=== PATIENT | male | born 1990 | race African-American/Black ===

== ENCOUNTER 2020-11-22 16:45 | Inpatient (IN) | payer OTHER ==
[~2020-11-22] VITALS: Ht 170.2 cm; Wt 123.0 kg
[2020-11-22] MEDS ORDERED: IV NORMAL SALINE 1,000ML 1,000 ML IV ONE (18:00)
--- NOTE | 2020-11-22 18:26 | RAD ---
EXAM: ABDOMEN 2 VIEWS. HISTORY: Abdominal pain, constipation. COMPARISON: None. FINDINGS: Supine and upright views of the abdomen are obtained. There is no pneumoperitoneum. There are no distended small bowel loops or significant air fluid level s. There is gas distally. IMPRESSION: 1. No evidence of obstruction or clear constipation by radiographs. Electronically signed by: Dorene Price MD (11/22/2020 6:23 PM) [facility]
[2020-11-22 18:49] LABS: BASO % 0 % (0-3); EOS % 0 % (0-3); HEMOGLOBIN 14.7 g/dL (13.0-17.5); LYMPH # 1.6 x10^3/uL (1.0-4.8); LYMPH % 15 % (24-48); MEAN CORPUSCULAR HEMOGLOBIN 26 pg (25-35); MEAN CORPUSCULAR HGB CONC 32 g/dL (31-37); MEAN CORPUSCULAR VOLUME 82 fL (79-100); MONO # 0.7 x10^3/uL (0.0-1.1); MONO % 7 % (0-9); NEUT # 8.3 x10^3uL (1.8-7.7); NEUT % 78 % (31-73); PLATELET COUNT 189 x10^3/uL (140-400); RED BLOOD COUNT 5.58 x10^6/uL (4.30-5.70); RED CELL DISTRIBUTION WIDTH 16.2 % (11.5-14.5); WHITE BLOOD COUNT 10.7 x10^3/uL (4.0-11.0)
[2020-11-22 19:02] LABS: ALBUMIN 4.4 g/dL (3.4-5.0); CALCIUM 8.8 mg/dL (8.5-10.1); CREATININE 2.1 mg/dL (0.7-1.3); GFR 44.8; POTASSIUM 3.6 mmol/L (3.5-5.1); TOTAL BILIRUBIN 0.5 mg/dL (0.2-1.0); TOTAL PROTEIN 8.8 g/dL (6.4-8.2)
[2020-11-22] MEDS ORDERED: ONDANSETRON PF 4 MG/2 ML VIAL. IVP ONE (19:15)
--- NOTE | 2020-11-22 19:15 | PHYS DOC ---
Past History Past Medical History: Constipation, Diabetes, Hypertension (BRENNON DAVID APRN) Past Surgical History: No Surgical History (BRENNON DAVID APRN) Alcohol Use: Occasionally (BRENNON DAVID APRN) Adult General Chief Complaint Chief Complaint: CONTISPATION HPI HPI Patient is a 30-year-old male presents to the emergency department complaining of constipation for weeks. Patient states he performed a fleets type enema from the pharmacy on Wednesday, started taking 1 dose of MiraLAX which he took this past Wednesday, Wednesday, and then again on . Patient states he had a very large bowel movement on Wednesday morning, and then later that day he had a large watery stool. Patient states he still feels as if he is full of stool and is unable to have a bowel movement since this past Wednesday. Patient denies abdominal pain. States he has intermittent nausea. Denies chest pain, shortness of breath, visual disturbances, rashes to the skin, denies increased thirst or increased urination. Patient states his past medical history is hypertension however was told to stop taking his blood pressure medicines several days ago and his blood pressure was 97/50. Patient states he has not taken any prescription medications since then. Patient denies a surgical history. Patient denies any allergies to medications. Patient denies any other physical complaints or physical concerns. (BRENNON DAVID APRN) Review of Systems Review of Systems 14 body systems of review of systems have been reviewed. See HPI for pertinent positives and negative responses, otherwise all other systems are negative, nonpertinent or noncontributory. (BRENNON DAVID APRN) Current Medications Current Medications Current Medications Medications (Trade) Dose Ordered Sig/Gabriela Start Time Stop Time Status Last Admin Dose Admin Ondansetron HCl (Zofran) 4 mg 1X ONCE 11/22/20 19:15 11/22/20 19:16 UNV 11/22/20 19:14 4 MG Sodium Chloride 1,000 ml @ 1,000 mls/hr 1X ONCE 11/22/20 18:00 11/22/20 18:59 DC 11/22/20 18:20 1,000 MLS/HR (BRENNON DAVID APRN) Allergies Allergies Allergies Coded Allergies Type Severity Reaction Last Updated Verified No Known Drug Allergies 11/22/20 No (BRENNON DAVID APRN) Physical Exam Physical Exam Constitutional: Well developed, well nourished, no acute distress, non-toxic appearance. 30-year-old male in mild respiratory distress. HENT: Normocephalic, atraumatic, bilateral external ears normal, oropharynx moist, no oral exudates, nose normal. Eyes: PERRLA, EOMI, conjunctiva normal, no discharge. Neck: Normal range of motion, no tenderness, supple, no stridor. Cardiovascular:Heart rate regular rhythm, no murmur, heart sounds S1-S2 to auscultation. Lungs & Thorax: Bilateral breath sounds clear to auscultation, no adventitious lung sounds appreciated. Abdomen: Bowel sounds normal, soft, no tenderness, no masses, no pulsatile masses. Skin: Warm, dry, no erythema, no rash. Back: No tenderness, no CVA tenderness. Extremities: No tenderness, no cyanosis, no clubbing, ROM intact, no edema. Neurologic: Alert and oriented X 3, normal motor function, normal sensory function, no focal deficits noted. Psychologic: Affect normal, judgement normal, mood normal. (BRENNON DAVID APRN) Current Patient Data Vital Signs Vital Signs Date Time Temp Pulse Resp B/P (MAP) Pulse Ox O2 Delivery O2 Flow Rate FiO2 11/22/20 18:37 114 22 184/109 (134) 99 11/22/20 18:21 Room Air 11/22/20 16:58 98.6 Lab Results Laboratory Tests Test 11/22/20 18:15 White Blood Count 10.7 x10^3/uL (4.0-11.0) Red Blood Count 5.58 x10^6/uL (4.30-5.70) Hemoglobin 14.7 g/dL (13.0-17.5) Hematocrit 46.0 % (39.0-53.0) Mean Corpuscular Volume 82 fL (79-100) Mean Corpuscular Hemoglobin 26 pg (25-35) Mean Corpuscular Hemoglobin Concent 32 g/dL (31-37) Red Cell Distribution Width 16.2 % (11.5-14.5) H Platelet Count 189 x10^3/uL (140-400) Neutrophils (%) (Auto) 78 % (31-73) H Lymphocytes (%) (Auto) 15 % (24-48) L Monocytes (%) (Auto) 7 % (0-9) Eosinophils (%) (Auto) 0 % (0-3) Basophils (%) (Auto) 0 % (0-3) Neutrophils # (Auto) 8.3 x10^3uL (1.8-7.7) H Lymphocytes # (Auto) 1.6 x10^3/uL (1.0-4.8) Monocytes # (Auto) 0.7 x10^3/uL (0.0-1.1) Eosinophils # (Auto) 0.0 x10^3/uL (0.0-0.7) Basophils # (Auto) 0.0 x10^3/uL (0.0-0.2) Sodium Level 135 mmol/L (136-145) L Potassium Level 3.6 mmol/L (3.5-5.1) Chloride Level 100 mmol/L (98-107) Carbon Dioxide Level 8 mmol/L (21-32) *L Anion Gap 27 (6-14) H Blood Urea Nitrogen 18 mg/dL (8-26) Creatinine 2.1 mg/dL (0.7-1.3) H Estimated GFR (Cockcroft-Gault) 44.8 BUN/Creatinine Ratio 9 (6-20) Glucose Level 505 mg/dL (70-99) *H Calcium Level 8.8 mg/dL (8.5-10.1) Total Bilirubin 0.5 mg/dL (0.2-1.0) Aspartate Amino Transferase (AST) 8 U/L (15-37) L Alanine Aminotransferase (ALT) 28 U/L (16-63) Alkaline Phosphatase 100 U/L (46-116) Total Protein 8.8 g/dL (6.4-8.2) H Albumin 4.4 g/dL (3.4-5.0) Albumin/Globulin Ratio 1.0 (1.0-1.7) (BRENNON DAVID APRN) EKG EKG [] (BRENNON DAVID APRN) Radiology/Procedures Radiology/Procedures [] (BRENNON DAVID APRN) Heart Score C/O Chest Pain: No Risk Factors: Risk Factors: DM, Current or recent (<one month) smoker, HTN, HLP, family history of CAD, obesity. Risk Scores: Risk Factors: DM, Current or recent (<one month) smoker, HTN, HLP, family history of CAD, obesity. (BRENNON DAVID APRN) Course & Med Decision Making Course & Med Decision Making Pertinent Labs and Imaging studies reviewed. (See chart for details) 30-year-old male, vital signs reviewed, presents to the emergency department with complaints of constipation problems. Physical examination unremarkable for constipation however patient in a mild respiratory distress, no adventitious lung sounds appreciated. Patient states that he is breathing this way because he is so constipated. Will order KUB and upright imaging, CBC, BMP, start 1 L normal saline, offered ondansetron for nausea, patient refused at this time stating he is not nauseated. Patient is hypertensive, however has stopped taking his blood pressure medications at home as directed by a healthcare provider this past week. Discussed with patient if he is discharged home to start back on his blood pressure medication regimen. Blood pressure at bedside during physical exam was 180/103. Patient continued to deny any headaches, visual disturbances, or any other neurological problems. Patient complained of nausea and vomited x1, 4 mg of Zofran given. Lab called critical results of CO2 8, serum blood glucose 505. Will order VBG and acetone level. Discussed this with patient, patient states that he forgot to tell me he is a new diabetic anxious started taking Metformin within the past month. Patient's acetone level small positive, VBG positive for DKA with pH 7.108, HCO3 5.2, total CO2 6, patient's lactic acid 1.5. Ordered one half normal saline with 20 of K to run at 75 cc an hour, 12 units IV insulin bolus, followed by 12 unit/h IV insulin drip. Also ordered patient's losartan 100 mg p.o. Called and discussed patient case with inpatient management Dr. Fair who has agreed to accept patient for full admission to the ICU with a diagnosis of diabetic ketoacidosis with the information he was given by me. Dr. Fair requested patient be started on glucose stabilization orders. Glucose stabilization orders initiated, Dr. Fair has assumed patient care at this time. Patient awaiting ICU bed from the emergency department. (BRENNON DAVID APRN) Course & Med Decision Making I assumed care as attending physician shelter through care of patient while in ER. I noticed vital sign instability and probed further diagnostic testing leading to finding of patient being in DKA. I oversaw further care and admission of patient for continued inpatient medical management. I agree to note, plan of care and dispo as stated Electronically signed, Charisse Barksdale (CHARISSE BARKSDALE DO) Marcos Disclaimer Dragon Disclaimer This electronic medical record was generated, in whole or in part, using a voice recognition dictation system. (BRENNON DAVID APRN) Departure Departure: Impression: Primary Impression: DKA (diabetic ketoacidoses) Disposition: ADMITTED INPATIENT Admitting Physician: Carroll Fair (Admit to the [place] ICU for diagnosis of DKA) (BRENNON DAVID APRN) Condition: STABLE Referrals: GHASSAN LAWSON DO (PCP) Problem Qualifiers Primary Impression: DKA (diabetic ketoacidoses) Diabetes mellitus type: type 2 Diabetes mellitus complication detail: without coma Qualified Codes: E11.10 - Type 2 diabetes mellitus with ketoacidosis without coma BRENNON DAVID APRN Nov 22, 2020 19:15 CHARISSE BARKSDALE DO November 26, 2020 14:02
[2020-11-22] MEDS ORDERED: POTASSIUM CL 20MEQ-0.45% NACL 1,000 ML IV ONE (20:00)
[2020-11-22] MEDS ORDERED: INSULIN REGULAR 100 UNIT/ML 3ML VIAL. IV ONE (20:00)
[2020-11-22] MEDS ORDERED: INSULIN REGULAR VIAL 100 UNIT in IV NORMAL SALINE 100ML 100 ML IV ONE (20:00)
[2020-11-22] MEDS ORDERED: ATOR40TA59 PO (20:30)
[2020-11-22] MEDS ORDERED: AMLO-187 PO (20:30)
[2020-11-22] MEDS ORDERED: CARV25TA PO (20:31)
[2020-11-22] MEDS ORDERED: METF500T16 PO (20:32)
[2020-11-22] MEDS ORDERED: LOSA100T14 PO (20:32)
[2020-11-22 20:36] LABS: BACTERIA,URINE 0 /HPF (0-FEW); BILIRUBIN,URINE NEG (NEG); CLARITY,URINE CLEAR; COLOR,URINE YELLOW; GLUCOSE,URINE 500 mg/dL (NEG); NITRITE,URINE NEG (NEG); SQUAMOUS EPITHELIAL CELL,UR OCC /LPF; UROBILINOGEN,URINE 0.2 mg/dL (0.2 mg/dL); WBC,URINE 0 /HPF (0-4)
[2020-11-22] MEDS: INSULIN REGULAR VIAL 100 UNIT in IV NORMAL SALINE 100ML 100 ML IV PRN (20:38)
--- NOTE | 2020-11-22 21:54 | NUR ---
The patient, BRENNON MCMAHON, 30 y/o, M admitted by , was given written information regarding hospital policies, unit procedures and contact persons. Valuables were checked and logged. Will continue to monitor.
[2020-11-22] MEDS ORDERED: POTASSIUM CL 20MEQ-0.45% NACL 1,000 ML IV SCH (22:45)
--- NOTE | 2020-11-22 22:46 | NUR ---
Notified MD of elevated bp and MD wants to start home medications. MD wants labs in the am only.
[2020-11-22 22:50] VITALS: BP 151/76
[2020-11-22 23:00] VITALS: BP 213/107
[2020-11-22] MEDS: amLODIPine BESYLATE 10 MG TABLET PO SCH (23:15)
[2020-11-22] MEDS: LOSARTAN 50 MG TABLET. PO SCH (23:15)
[2020-11-22] MEDS: CARVEDILOL 12.5 MG TABLET PO SCH (23:15)
[2020-11-23] VITALS (28 sets, daily range): BP systolic 47–160; BP diastolic 18–105
[2020-11-23] MEDS: ONDANSETRON PF 4 MG/2 ML VIAL. IVP PRN ×2 (00:03→08:20)
[2020-11-23] MEDS: INSULIN REGULAR VIAL 100 UNIT in IV NORMAL SALINE 100ML 100 ML IV PRN (04:59)
[2020-11-23 05:57] LABS: BASO % 1 % (0-3); EOS % 0 % (0-3); HEMATOCRIT 42.9 % (39.0-53.0); HEMOGLOBIN 13.6 g/dL (13.0-17.5); LYMPH # 1.7 x10^3/uL (1.0-4.8); LYMPH % 19 % (24-48); MEAN CORPUSCULAR HEMOGLOBIN 26 pg (25-35); MEAN CORPUSCULAR HGB CONC 32 g/dL (31-37); MEAN CORPUSCULAR VOLUME 83 fL (79-100); MONO # 1.1 x10^3/uL (0.0-1.1); MONO % 12 % (0-9); NEUT # 6.4 x10^3uL (1.8-7.7); NEUT % 69 % (31-73); PLATELET COUNT 152 x10^3/uL (140-400); RED BLOOD COUNT 5.19 x10^6/uL (4.30-5.70); RED CELL DISTRIBUTION WIDTH 15.6 % (11.5-14.5); WHITE BLOOD COUNT 9.3 x10^3/uL (4.0-11.0)
[2020-11-23 06:06] LABS: ALBUMIN 3.8 g/dL (3.4-5.0); ALBUMIN/GLOBULIN RATIO 1.1 (1.0-1.7); CALCIUM 8.3 mg/dL (8.5-10.1); CREATININE 2.8 mg/dL (0.7-1.3); GFR 32.1; POTASSIUM 3.6 mmol/L (3.5-5.1); TOTAL BILIRUBIN 0.4 mg/dL (0.2-1.0); TOTAL PROTEIN 7.4 g/dL (6.4-8.2)
[2020-11-23] MEDS ORDERED: SODIUM BICARB ADULT 8.4% 50 MEQ/50 ML DISP.SYRIN. IV ONE (06:30)
[2020-11-23] MEDS ORDERED: metFORMIN 500 MG TABLET PO SCH (08:00)
[2020-11-23] MEDS: CARVEDILOL 12.5 MG TABLET PO SCH ×2 (08:19→10:02)
[2020-11-23] MEDS: amLODIPine BESYLATE 10 MG TABLET PO SCH (09:00)
[2020-11-23] MEDS: LOSARTAN 50 MG TABLET. PO SCH (09:00)
[2020-11-23] MEDS: ATORVASTATIN CALCIUM 20 MG TABLET PO SCH (09:00)
[2020-11-23] MEDS ORDERED: LOSARTAN 50 MG TABLET. PO SCH (09:00)
[2020-11-23] MEDS ORDERED: DEXTROSE 50% 25 GM / 50ML DISP.SYRIN. IV PRN (09:30)
--- NOTE | 2020-11-23 10:00 | NUR ---
Notified MD of hypotension, 40s/10s. Blood pressure checked in 4 locations all with readings as low as 60s/30s. Dr. Fair paged and received orders for IV Fluid Bolus. Will give IV hydration and continue to reassess. All home BP medications stopped at this time. Will continue to critically monitor.
--- NOTE | 2020-11-23 10:07 | HP ---
ADMIT DATE: 11/23/2020 ATTENDING PHYSICIAN: Dr. Fair. CHIEF COMPLAINT: High blood sugar. HISTORY OF PRESENT ILLNESS: The patient is a pleasant 30-year-old gentleman who works at the [employer]. He was recently diagnosed a month ago with diabetes. He has essential hypertension. He is obese. He was started on metformin, but unfortunately sugars are fairly out of control. In the ED, he was found to be in ketoacidosis. His admission blood sugar was over 600, bicarbonate level was 8 and an anion gap of 31. Hemoglobin was maintained. He was given fluids and insulin, admitted to the ICU with a GlucoStabilizer protocol with uncontrolled diabetes and diabetic ketoacidosis. PAST MEDICAL HISTORY: Significant for the new onset diabetes type 2; however, this may be a component of type 1. There is no family history. He also has essential hypertension, hyperlipidemia. CURRENT MEDICATIONS: Include metformin twice a day along with losartan, amlodipine and Lipitor. ALLERGIES: He has no known drug allergies. SOCIAL HISTORY: He is nonsmoker, nondrinker. He is retired . He served for 8 years. He currently works in the Department of [employer]. His is also in the . FAMILY HISTORY: Both parents are alive in their late 40s. No history of diabetes. REVIEW OF SYSTEMS: Significant for constipation, high blood pressure. He has had some increased respiratory rate due to Kussmaul breathing. He denied any chest pain, COVID exposure, shortness of breath, hematemesis or seizures. All other systems reviewed and found to be negative. PHYSICAL EXAMINATION: GENERAL: When I saw him, this is a pleasant young male. VITAL SIGNS: Showed a blood pressure 112/40, pulse was 89 and regular, temperature 97.2 degrees, oxygen saturation 100% on room air. HEENT: Head is without trauma. Pupils are reactive. Sclerae nonicteric. Oropharynx is clear. NECK: Supple, no bruits. LUNGS: Otherwise clear. CARDIOVASCULAR: Showed regular heart sounds, no gallops. ABDOMEN: Soft, obese, protuberant. No organomegaly. Normoactive bowel sounds. EXTREMITIES: Show no cyanosis or edema. NEUROLOGIC: Focally intact. Speech is fluent. SKIN: Warm and dry. LABORATORY DATA: The hemoglobin was 14.7 g/dL with a white count of 10,700. Electrolytes showed a significant anion gap. Repeated this morning, his bicarbonate was still 8, potassium 3.6 mEq. The anion gap is still 25. Sugars are down in the mid 200s and is improving with the glucose stabilizer protocol. Transaminases are normal. ASSESSMENT: This 30-year-old gentleman has; 1. Diabetic ketoacidosis. 2. Profound hyperglycemia. 3. Essential hypertension. 4. Hyperlipidemia. PLAN: 1. Admit to the ICU. 2. Glucose stabilizer protocol. 3. Serial chemistry. 4. Sodium bicarbonate. 5. Continue home medications as ordered. ARMANDO DR: JEFERSON/kaiser TID: [id number]
[2020-11-23] MEDS ORDERED: IV NORMAL SALINE 1,000ML 1,000 ML IV ONE ×3 (10:45→14:45)
[2020-11-23] MEDS: INSULIN LISPRO 300 UNITS/3 ML VIAL. SQ SCH ×3 (11:46→19:00)
--- NOTE | 2020-11-23 14:29 | NUR ---
Paged Dr. Fair regarding patient's continued hypotension even after fluid boluses. Received orders for IV NS Bolus x 1. Will continue to critically monitor.
[2020-11-23] MEDS: IV NORMAL SALINE 1,000ML 1,000 ML IV SCH ×2 (14:50→23:34)
[2020-11-24] MEDS: INSULIN LISPRO 300 UNITS/3 ML VIAL. SQ SCH ×6 (00:05→20:09)
[2020-11-24 03:29] VITALS: BP 162/81
--- NOTE | 2020-11-24 04:45 | NUR ---
Pt transferred from ICU to M/S just before midnight 11/23. Blood glucose as noted in chart, insulin given per orders.
[2020-11-24] MEDS ORDERED: MAG HYDROX/AL HYDROX/SIMETH 30 ML ORAL.SUSP PO PRN (05:15)
[2020-11-24 05:20] VITALS: BP 157/93
[2020-11-24] MEDS: CARVEDILOL 12.5 MG TABLET PO SCH ×2 (08:02→16:21)
[2020-11-24] MEDS: LOSARTAN 50 MG TABLET. PO SCH (08:04)
[2020-11-24] MEDS: amLODIPine BESYLATE 10 MG TABLET PO SCH (08:04)
[2020-11-24] MEDS: ATORVASTATIN CALCIUM 20 MG TABLET PO SCH (08:04)
[2020-11-24 08:47] LABS: CALCIUM 7.6 mg/dL (8.5-10.1); CREATININE 1.9 mg/dL (0.7-1.3); GFR 50.3
[2020-11-24] MEDS ORDERED: SODIUM BICARB ADULT 8.4% 50 MEQ/50 ML DISP.SYRIN. IV ONE (09:15)
[2020-11-24] MEDS: POTASSIUM CHLORIDE 20 MEQ TABLET.ER. PO SCH ×2 (09:29→20:06)
[2020-11-24] MEDS: IV NORMAL SALINE 1,000ML 1,000 ML IV SCH (09:38)
--- NOTE | 2020-11-24 09:51 | NUR ---
nursing note after rounding with dr hoffmann, plan to keep pt overnight, pt fills his scripts at [facility], which is closed today, pt needs to start on insulin. plan per dr hoffmann is to keep pt overnight and dc tomorrow with insulin script and diabetic education. bmp stat labs ordered per dr hoffmann, pt bicarb came back at 11. order from dr hoffmann for 1 amp of bicarb push iv and oral potassium 20 meq bid. pt currently resting in the bed. eleonora pond.
--- NOTE | 2020-11-24 10:04 | PN ---
DATE: 11/24/2020 ATTENDING PHYSICIAN: Dr. Fair. SUBJECTIVE: Feeling better. No new complaints. His appetite is coming back. He denies any nausea or shortness of breath. OBJECTIVE FINDINGS: VITAL SIGNS: Blood pressure today is 157/93, pulse 89 and regular, oxygen saturation 99% on room air. He is afebrile. HEENT: Head is without trauma. Pupils are reactive. Sclerae nonicteric. Oropharynx clear. NECK: Supple, no bruits. LUNGS: Clear. CARDIOVASCULAR: Regular heart tones. ABDOMEN: Soft. No guarding or rebound tenderness. EXTREMITIES: Show no cyanosis. NEUROLOGIC: Focally intact. Speech is fluent. SKIN: Warm and dry. LABORATORY DATA: Potassium is 3.0 mEq per liter, bicarbonate level the CO2 is up to 11, but the anion gap still elevated at 21, creatinine down to 1.9 mg/dL. ASSESSMENT: 1. A 30-year-old gentleman with uncontrolled diabetes. 2. Diabetic ketoacidosis. 3. Obesity. 4. Hypertension. 5. Hypokalemia, asymptomatic. 6. Persistent acidosis. 7. Chronic kidney disease stage 3. PLAN: 1. Continue IV hydration with saline. 2. Extra bicarbonate ordered. 3. Serial chemistries. 4. Advance diet. 5. Continue q.4h. Accu-Cheks with insulin therapy. 6. Potassium replacement. JEFERSON/PHILIP DR: JEFERSON/kaiser TID: [id number]
[2020-11-24 11:42] VITALS: BP 123/52
--- NOTE | 2020-11-24 13:07 | NUR ---
nursing note blood sugar pt bs was 381 at lunch time. pt given sliding scale and paged for dr hoffmann. 11 regular units additional ordered eleonora pond
[2020-11-24] MEDS ORDERED: INSULIN LISPRO 300 UNITS/3 ML VIAL. SQ ONE (13:15)
[2020-11-24 15:17] VITALS: BP 150/50
[2020-11-24 19:35] VITALS: BP 112/67
[2020-11-24 23:11] VITALS: BP 134/75
[2020-11-25] MEDS: IV NORMAL SALINE 1,000ML 1,000 ML IV SCH (00:02)
[2020-11-25] MEDS: INSULIN LISPRO 300 UNITS/3 ML VIAL. SQ SCH ×4 (00:02→12:35)
--- NOTE | 2020-11-25 03:43 | NUR ---
Pt accidentally pulled out IV while toileting himself. Catheter tip intact. Gauze dressing applied to site. Pt does not wish to have IV replaced. Pt has been eating and drinking well. IV fluids held at this time.
[2020-11-25 05:24] VITALS: BP 142/87
[2020-11-25] MEDS: CARVEDILOL 12.5 MG TABLET PO SCH (08:04)
[2020-11-25] MEDS: ATORVASTATIN CALCIUM 20 MG TABLET PO SCH (08:04)
[2020-11-25] MEDS: LOSARTAN 50 MG TABLET. PO SCH (08:05)
[2020-11-25] MEDS: POTASSIUM CHLORIDE 20 MEQ TABLET.ER. PO SCH (08:05)
[2020-11-25] MEDS: amLODIPine BESYLATE 10 MG TABLET PO SCH (08:05)
[2020-11-25 10:54] VITALS: BP 130/80
--- NOTE | 2020-11-25 13:41 | NUR ---
Discharge note Pt discharged from unit at 1300 via ambulation. Pt given written and verbal instructions along with demonstration on how to administer insulin. Pt statement of understanding achieved.
--- NOTE | 2020-11-25 18:14 | DS ---
DATE OF DISCHARGE: 11/25/2020 FINAL DISCHARGE DIAGNOSES: 1. A 30-year-old gentleman with uncontrolled diabetes. 2. Diabetic ketoacidosis. 3. Obesity. 4. Hypertension. 5. Asymptomatic hypokalemia, corrected. 6. Persistent acidosis, corrected. 7. Chronic kidney disease, stage 3. HISTORY AND PHYSICAL: The patient is a 30-year-old gentleman recently diagnosed diabetic. He clearly requires insulin. He has been started on metformin. He is admitted to the ED with sugars greater than 600, anion gap of 31, and clinical evidence of diabetic ketoacidosis. PHYSICAL EXAMINATION: Please see my dictated note. PERTINENT LABORATORY AND X-RAY STUDIES: Admission hemoglobin was 14.7 g/dL with a white count of 10,700. Chemistry panel on admission showed elevated blood sugars. Creatinine 1.9 mg percent. CO2 had been 7. This is followed up regularly with fluids and bicarbonate. Anion gap was 30. COURSE IN THE HOSPITAL: The patient was admitted to the ICU, started on glucose stabilizer protocol. Insulin was administered intravenously per calculation of weight. Home medications were continued. He did better. Serial chemistries showed an improvement in the creatinine and his acidosis. Also, sodium bicarbonate boluses were administered. By the fourth hospital day, he was feeling much better. He was eating solid foods and sugars in the low 200s. Blood pressure is improved at 142/87, pulse is regular. He was afebrile. Oxygen saturation 99% on room air. At this time, I recommend a t.i.d. regimen 20 units of regular insulin before each meal and 20 units of Lantus at night. He should continue his other home meds including the following: He should continue his amlodipine, Lipitor, carvedilol and losartan doses unchanged. For now, we have held the metformin. Prescriptions were written. He was discharged from our hospital in stable condition with explicit instructions and followup care. I suggest a followup visit with his PCP at [facility] in two weeks' time. Total discharge time spent is 39 minutes. JEFERSON/NAGI COLE: JEFERSON/kaiser TID: [id number] CC: [facility]
== END 2020-11-25 13:45 | disposition home or self-care (01) | DRG 637 ==
LOC: ER 16:45 → ICU 20:03 → 1 SOUTH 11-23 23:48
PROVIDERS: ADMIT Hospitalist; ATTEND Hospitalist
DX: E11.10 Type 2 diabetes mellitus with ketoacidosis without coma (principal); N17.0 Acute kidney failure with tubular necrosis; Z68.41 Body mass index [BMI] 40.0-44.9, adult; E87.6 Hypokalemia; E11.22 Type 2 diabetes mellitus with diabetic chronic kidney disease; E66.9 Obesity, unspecified; F17.200 Nicotine dependence, unspecified, uncomplicated; E78.5 Hyperlipidemia, unspecified; I12.9 Hypertensive chronic kidney disease with stage 1 through stage 4 chronic kidney disease, or unspecified chronic kidney disease; N18.30 Chronic kidney disease, stage 3 unspecified; Z82.49 Family history of ischemic heart disease and other diseases of the circulatory system
CPT/HCPCS: 36415; 74019; 80048; 80053; 81001; 82010; 82803; 82947; 85025; 96361; 96374; J1815; J2405; 99285-25; J7030